=== PATIENT | male | born 1960 | race Caucasian/White ===

== ENCOUNTER 2018-09-03 05:41 | Day surgery (SDC) | payer MEDICARE ==
[~2018-09-03] VITALS: Ht 188 cm; Wt 89.4 kg
[~2018-09-03 05:41] MED LIST: ASPI81CH PO; CYCL10 PO; DOCU100 PO; HYDROCODON-ACE1 EAC3 PO; Lisinopril2.5 MG PO; METO50 PO; OMEPRAZOLE MAGN20 MG PO; OXYC10ER PO; PANT40 PO; THERA1 EACH PO
--- NOTE | 2018-09-03 06:49 | NUR ---
Ambulatory in Day Surgery History, Chart, Medications and Allergies reviewed before start of procedure. Lungs clear T/O to Auscultation. Patient confirms NPO status and agrees with scheduled surgery. Patient States Post-Procedure ride home has been arranged.
--- NOTE | 2018-09-03 09:24 | NUR ---
RECEIVED REPORT FROM CHEMISTRY ACCOUNT MANAGER (DIDIER). PT IS AWAKE DENIES ANY PAIN. VSS. RLQ DRSG CDI WITH GAUZE/TAPE. NO COMPLAINTS.
--- NOTE | 2018-09-03 09:48 | NUR ---
PT SITTING UP NOW DRINKING COFFEE. AT BEDSIDE. CONTINUES TO NOT HAVE ANY COMPLAINTS. PT STATES COMFORTABLE.
--- NOTE | 2018-09-03 10:04 | NUR ---
Discharge instructions reviewed with patient. Patient verbalizes understanding. Copy given to patient to take home. HAS RX. PT VOICES NO QUESTIONS OR CONCERNS. PT HAS ALL PERSONAL BELONGINGS. Patient States Post-Procedure ride home has been arranged.
--- NOTE | 2018-09-03 10:15 | NUR ---
Discharged via wheelchair to private car for ride home.
--- NOTE | 2018-09-03 14:57 | NUR ---
09/03/18 1457 Radha Alvarenga VERIFICATIONS: EDIT CHART.
== END 2018-09-03 22:38 | disposition home or self-care (01) ==
LOC: ORSCMMR 05:41 → ORD 07:30 → ORSCMMR 22:38
PROVIDERS: Surgery
PROC: 0YU50JZ Supplement Right Inguinal Region with Synthetic Substitute, Open Approach (ICD-10-PCS; principal; 2018-09-03 07:30)
DX: K40.90 Unilateral inguinal hernia, without obstruction or gangrene, not specified as recurrent (principal); J44.9 Chronic obstructive pulmonary disease, unspecified; I48.92 Unspecified atrial flutter; Z87.891 Personal history of nicotine dependence; Z79.899 Other long term (current) drug therapy; Z79.82 Long term (current) use of aspirin
CPT/HCPCS: C1781; J0690; J1100; J1885; J2250; J2405; J3010; J7120